=== PATIENT | female | born 1995 | race Caucasian/White ===

== ENCOUNTER 2019-04-25 16:28 | Emergency (ER) | payer OTHER ==
[~2019-04-25] VITALS: Ht 152.4 cm; Wt 55.0 kg
[~2019-04-25 16:28] MED LIST: AMOX1TAB10 PO
[2019-04-25 16:31] VITALS: BP 118/67; PULSE 78; RESP 18; Ht 152.4 cm; Wt 55.0 kg
--- NOTE | 2019-04-25 16:36 | ERD ---
ER Documentation Chief Complaint Chief Complaint POSSIBLE BITE BY SQUIRREL HPI 23-year-old female [id number] presents after being bit by a squirrel on her right thumb. Mild pain at the site. No fever. No bleeding or drainage. Her tetanus vaccination is up-to-date. ROS All systems reviewed and are negative except as per history of present illness. Medications Home Meds Active Scripts Amoxicillin/Potassium Clav (Amox-Clav 875-125 mg Tablet) 875-125 mg Tab, 1 TAB PO BID for 7 Days, #14 TAB Prov:NAIMA MORRIS PA-C 04/25/19 FmHx Family History: No diabetes Physical Exam Vitals Vital Signs Date Temp Pulse Resp B/P (MAP) Pulse Ox O2 O2 Flow FiO2 Time Delivery Rate 04/25/19 98.1 78 18 118/67 99 16:31 (84) Physical Exam Const: No acute distress Head: Atraumatic Eyes: Normal Conjunctiva ENT: Normal External Ears, Nose and Mouth. Neck: Full range of motion. No meningismus. Resp: Clear to auscultation bilaterally Cardio: Regular rate and rhythm, no murmurs Right hand: Thumb has small abrasion to the pad surface distal end of thumb, no bleeding or drainage, full range of motion in the thumb, nontender throughout, sensation to light touch is intact, no snuffbox tenderness Procedures/MDM Patient is here after squirrel bite. Her tetanus vaccination is up-to-date. No indication for rabies vaccines at this time. She was given prescription for Augmentin. Patient counseled regarding my diagnostic impression and care plan. Prior to discharge all questions answered. Pt agrees with treatment plan and understands strict return precautions. Pt is instructed to follow up with primary care provider within 24-48 hours. Precautionary instructions provided including instructions to return to the ER if not improving or for any worsening or changing symptoms or concerns. Departure Diagnosis: Primary Impression: Animal bite Condition: Stable Patient Instructions: Animal Bite, General Additional Instructions: Llame al doctor LILLY y reece ariela JOSE MARTIN PARA DENTRO DE 1-2 LINCOL[place].Dgale a la secretaria que nosotros le instruimos hacer esta jose martin.Avise o llame si baxter condicin se empeora antes de la jose martin. Regresa aqui si peor o no mejor. NAIMA MORRIS PA-C Apr 25, 2019 16:36
== END 2019-04-25 16:34 | disposition home or self-care (01) ==
LOC: E/R 16:28
DX: S61.051A Open bite of right thumb without damage to nail, initial encounter (principal); W53.21XA Bitten by squirrel, initial encounter; Y92.9 Unspecified place or not applicable
CPT/HCPCS: 99283